=== PATIENT | female | born 2000 | race Caucasian/White ===

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

== ENCOUNTER → 2024-04-20 | Outpatient (CLI) | payer MEDICAID, SELFPAY ==
[2024-04-20 12:19] LABS: Absolute Lymphocyte Count 2.65 X10^3/uL (0.83-4.51); Absolute Neutrophil Count 4.4 X10^3/uL (2.0-7.7); Basophil# 0.07 X10^3/uL; Basophil% 0.9 % (0-1); Eosinophil# 0.03 X10^3/uL; Eosinophils% 0.4 % (0-5); Hematocrit 34.5 % (37-47); Hemoglobin 10.1 g/dL (12.0-15.0); Lymphocyte # 2.65 X10^3/ul (0.83-4.51); Lymphocyte % 35.1 % (19-41); Mean Corp Hgb Conc 29.3 g/dL (32-36); Mean Corpuscular Hgb 20.9 pg (27.0-32.0); Mean Corpuscular Volume 71.3 fL (81-99); Mean Platelet Vol. 11.7 fl (6.2-12.0); Monocyte# 0.38 X10^3/uL; NRBC Flagged by Analyzer 0 % (0-5); Neutrophil # 4.37 X10^3/uL (2.7-7.7); Neutrophil % 58.1 % (47-70); POSITIVE MORPHOLOGY YES; Platelet Count 352 K/mm3 (150-450); RBC Distribution Width SD 52.1 fl (35.1-43.9); Red Blood Count 4.84 M/mm3 (4.2-5.4); White Blood Count 7.5 K/mm3 (4.4-11.0)
[2024-04-20 12:21] LABS: Differential Indicated SCAN CRITERIA MET
[2024-04-20 12:34] LABS: Amphetamine Urine VISTA NEGATIVE (<1000 ng/mL); Barbiturate Urine VISTA NEGATIVE (< 200 ng/mL); Benzodiazepine Urine VISTA NEGATIVE (< 200 ng/mL); Cocaine Urine VISTA NEGATIVE (< 300 ng/mL); Ecstacy Urine VISTA NEGATIVE (< 500 ng/mL); Methadone Urine VISTA NEGATIVE (< 300 ng/mL); PCP Urine VISTA NEGATIVE (< 25 ng/mL); THC Urine VISTA POSITIVE (< 50 ng/mL); Vista UDS pH Range 7
[2024-04-20 12:55] LABS: Anisocytosis 2+; Microcytosis 1+; Platelet Estimate ADEQUATE (ADEQ); Platelet Morphology LARGE; Polychromasia 1+
[2024-04-20 12:56] LABS: Acanthocytes RARE; Ovalocyte 1+; Tear Drop Cell RARE
[2024-04-20 13:44] LABS: HIV - WCH Non-Reactive (Nonreactive); Hepatitis B Surface Antigen Non-Reactive (Nonreactive); Hepatitis C Antibody Non-Reactive (Nonreactive); Rubella IgG Reactive (Nonreactive); Syphilis Antibodies Non-reactive
[2024-04-20 14:52] LABS: Amphetamine Urine VISTA NEGATIVE (<1000 ng/mL); Barbiturate Urine VISTA NEGATIVE (< 200 ng/mL); Benzodiazepine Urine VISTA NEGATIVE (< 200 ng/mL); Cocaine Urine VISTA NEGATIVE (< 300 ng/mL); Ecstacy Urine VISTA NEGATIVE (< 500 ng/mL); Methadone Urine VISTA NEGATIVE (< 300 ng/mL); PCP Urine VISTA NEGATIVE (< 25 ng/mL); THC Urine VISTA POSITIVE (< 50 ng/mL); Vista UDS pH Range 6
[2024-04-23 21:07] LABS: Chlamydia By Nucleic Acid AMP Negative (Negative); Gonococcus By Nucleic Acid AMP Negative (Negative)
[2024-04-26 16:15] LABS: HPV Reflexed? NOT INDICATED
== END | disposition home or self-care (01) ==
PROVIDERS: Referring Provider Obstetrics & Gynecology; Visit Provider Obstetrics & Gynecology
DX: O09.90 Supervision of high risk pregnancy, unspecified, unspecified trimester (principal); F12.21 Cannabis dependence, in remission; F15.11 Other stimulant abuse, in remission; O99.891 Other specified diseases and conditions complicating pregnancy; N94.89 Other specified conditions associated with female genital organs and menstrual cycle; O99.210 Obesity complicating pregnancy, unspecified trimester; Z12.4 Encounter for screening for malignant neoplasm of cervix; Z78.9 Other specified health status; Z3A.00 Weeks of gestation of pregnancy not specified
CPT/HCPCS: 36415; 80307; 83036; 85025; 86703; 86762; 86780; 86787; 86803; 86850; 86900; 86901; 87086; 87088; 87340; 87491; 87591; 88175; G0145

== ENCOUNTER → 2024-08-14 | Outpatient (CLI) | payer MEDICAID, SELFPAY ==
[2024-08-14 12:17] LABS: Absolute Lymphocyte Count 2.08 X10^3/uL (0.83-4.51); Absolute Neutrophil Count 6.6 X10^3/uL (2.0-7.7); Basophil# 0.07 X10^3/uL; Basophil% 0.7 % (0-1); Eosinophil# 0.05 X10^3/uL; Eosinophils% 0.5 % (0-5); Hematocrit 33.8 % (37-47); Hemoglobin 10.2 g/dL (12.0-15.0); Lymphocyte # 2.08 X10^3/ul (0.83-4.51); Lymphocyte % 22.1 % (19-41); Mean Corp Hgb Conc 30.2 g/dL (32-36); Mean Corpuscular Hgb 24.9 pg (27.0-32.0); Mean Corpuscular Volume 82.4 fL (81-99); Mean Platelet Vol. 11.9 fl (6.2-12.0); Monocyte# 0.48 X10^3/uL; Monocyte% 5.1 % (0-10); NRBC Flagged by Analyzer 0 % (0-5); Neutrophil # 6.64 X10^3/uL (2.7-7.7); Neutrophil % 70.7 % (47-70); Platelet Count 319 K/mm3 (150-450); RBC Distribution Width CV 18.4 % (11.6-14.6); RBC Distribution Width SD 55.4 fl (35.1-43.9); White Blood Count 9.4 K/mm3 (4.4-11.0)
[2024-08-14 12:48] LABS: Glucose Challenge Gest 1H 50g 100 mg/dL (70-140)
[2024-08-14 13:03] LABS: HIV - WCH Non-Reactive (Nonreactive); Syphilis Antibodies Non-reactive
== END | disposition home or self-care (01) ==
LOC: BWCLAB 09:37
PROVIDERS: Advanced Practice Midwife; Referring Provider Obstetrics & Gynecology; Visit Provider Obstetrics & Gynecology
DX: O09.92 Supervision of high risk pregnancy, unspecified, second trimester (principal); Z13.1 Encounter for screening for diabetes mellitus; Z3A.00 Weeks of gestation of pregnancy not specified
CPT/HCPCS: 36415; 82950; 85025; 86703; 86780

== ENCOUNTER → 2024-08-28 | Outpatient (CLI) | payer MEDICAID, SELFPAY ==
[2024-08-28 15:38] LABS: Amphetamine Urine NEGATIVE (<1000 ng/mL); Barbiturate Urine VISTA NEGATIVE (< 200 ng/mL); Benzodiazepine Urine VISTA NEGATIVE (< 200 ng/mL); Cocaine Urine VISTA NEGATIVE (< 300 ng/mL); Ecstacy Urine VISTA NEGATIVE (< 500 ng/mL); Methadone Urine VISTA NEGATIVE (< 300 ng/mL); Opiates Urine NEGATIVE (< 300 ng/mL); PCP Urine NEGATIVE (< 25 ng/mL); THC Urine VISTA NEGATIVE (< 50 ng/mL); Vista UDS pH Range 7
== END | disposition home or self-care (01) ==
LOC: LABSPEC 14:50
PROVIDERS: Referring Provider Obstetrics & Gynecology; Visit Provider Obstetrics & Gynecology
DX: F12.21 Cannabis dependence, in remission (principal)
CPT/HCPCS: 80307

== ENCOUNTER 2024-10-03 18:10 | Outpatient (CLI) | payer MEDICAID, SELFPAY ==
[2024-10-03 18:21] VITALS: BMI 36.3
[2024-10-03 18:33] VITALS: BP 121/64; PULSE 88; RESP 16; TEMP 36.3
[2024-10-03 18:57] LABS: Color, Urine Yellow (Yellow); Glucose, Dipstick Normal (Normal); Ketone-Dipstick 5 mg/dl (Negative); Leukocyte Esterase-Dipstick Negative /ul (Negative); Nitrite-Dipstick Negative (Negative); Occult Blood-Urine Negative /ul (Negative); Protein-Dipstick Negative (Negative); Specific Gravity, Urine 1.005 (1.002-1.030); Urine Bilirubin Dipstick Negative (Negative); Urine Clarity Clear (Clear); Urine Urobilinogen Normal (Normal)
[2024-10-03 19:13] LABS: ROM Internal Control Test YES-OK TO RESULT pt. (Internal QC); ROM Patient Test Negative (Negative); Record Kit Lot#, ROM+ K3294
[2024-10-03 19:27] LABS: Fetal Fibronectin Negative; Record Kit Lot#, fFN D4035
[2024-10-03 19:34] VITALS: BP 127/66; PULSE 85
[2024-10-03 19:35] VITALS: RESP 14; TEMP 36.4
--- NOTE | 2024-10-03 22:52 | OB.TRI.PN ---
Progress Notes Date of Service: 10/03/24 Progress Note: Patient presents for triage evaluation secondary to contractions FHT: 140 Moderate variability reactive no decelerations category I tracing [place]: no regular Contractions Assessment and plan: ocntraction 33 weeks 1 cm dilate dffn negative rom plus negative ua negative Reactive NST, reassuring maternal and status patient discharged to home to follow-up as scheduled. See problem list details for additional plan information. Laboratory Studies: Laboratory Tests 10/03/24 10/03/24 Range/Units 18:45 18:20 Urine Color Yellow (Yellow) Urine Clarity Clear (Clear) Urine pH 7.0 (5.0 - 8.0) Ur Specific [place] 1.005 (1.002-1.030) Urine Protein Negative (Negative) mg/dl Urine Glucose (UA) Normal (Normal) mg/dl Urine Ketones 5 H (Negative) mg/dl Urine Occult Blood Negative (Negative) /ul Urine Nitrite Negative (Negative) Urine Bilirubin Negative (Negative) mg/dL Urine Urobilinogen Normal (Normal) mg/dl Ur Leukocyte Esterase Negative (Negative) /ul Vag Amniotic Fld Detect Negative (Negative) Fibronectin Negative Charges/Coding Procedures Urinary/Genital 52xxx-59xxx: 71815-72 non-stress test Interp
== END 2024-10-03 20:10 | disposition home or self-care (01) ==
LOC: WPOUT 18:17 → WP 19:43
PROVIDERS: Referring Provider Obstetrics & Gynecology; Visit Provider Obstetrics & Gynecology
DX: O47.03 False labor before 37 completed weeks of gestation, third trimester (principal); Z3A.33 33 weeks gestation of pregnancy
CPT/HCPCS: 59025; 59050; 81002; 82731; 84112; 99221; G0378

== ENCOUNTER 2024-10-22 11:15 | Outpatient (CLI) | payer MEDICAID, SELFPAY ==
[2024-10-22 11:30] VITALS: BMI 37.0
[2024-10-22 11:36] VITALS: BP 115/64; PULSE 109; RESP 16; TEMP 36.6; O2SAT 97
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
--- NOTE | 2024-10-22 14:47 | NURSING ---
pt being discharge and has an appointment at IOP at 1500. Going directly there.
--- NOTE | 2024-11-09 15:31 | CASEMGMT ---
[place]-SUICIDE SEVERITY RATING SCALE (C-SSRS) SUICIDAL IDEATION Ask questions 1 and 2.? If both are negative, proceed to ?Suicidal Behavior? section. If the answer to question 2 is ?yes?, ask questions 3, 4 and 5.? If the answer to question 1 and/or 2 is ?yes?, complete ?Intensity of Ideation? section below. Lifetime: Time He/She/They [place] Most Suicidal Past 1 month 1.? Wish to be Person endorses thoughts about a wish to be or not alive anymore or wish to fall asleep and not wake up. Have you wished you were or wished you could go to sleep and not wake up? If yes, describe: Patient reports that if she were things would be quiet, she would not have to think about anything and would not have any more stress. Yes?No X ? Yes?X??? No 2.? Non-Specific Active Suicidal Thoughts General non-specific thoughts of wanting to end one?s life/ by suicide (e.g., ?I?ve thought about killing myself?) without thoughts of ways to kill oneself/associated methods, intent, or plan during the assessment period. Have you actually had any thoughts of killing yourself? If yes, describe:Patient identifies that she has had thoughts of killing herself, sometimes these thoughts are without a specific way, but thoughts of what things would look like if she were to be unalive. ??? Yes ?No ??? X? ?? Yes???No X 3.? Active Suicidal Ideation with Any Methods (Not Plan) without Intent to Act Person endorses thoughts of suicide and has thought of at least one method during the assessment period. This is different than a specific plan with time, place or method details worked out (e.g., thought of method to kill self but not a specific plan).? Includes person who would say, ?I thought about taking an overdose but I never made a specific plan as to when, where or how I would actually do it?and I would never go through with it.? Have you been thinking about how you might do this? If yes, describe: Patient states that she has thought of methods on how she would kill herself, patient endorses thoughts of cutting her veins, my blood veins up my wrist, while I am in the bathroom ?? ?Yes? No X Yes? No X 4.? Active Suicidal Ideation with Some Intent to Act, without Specific Plan Active suicidal thoughts of killing oneself and person reports having some intent to act on such thoughts, as opposed to ?I have the thoughts but I definitely will not do anything about them.? Have you had these thoughts and had some intention of acting on them? If yes, describe: ?? Yes? No ??X Yes? No ?? X 5.? Active Suicidal Ideation with Specific Plan and Intent Thoughts of killing oneself with details of plan fully or partially worked out and person has some intent to carry it out. Have you started to work out or worked out the details of how to kill yourself? Did you intend to carry out this plan? If yes, describe: Patient reports that she has mapped out plans in her head on a way and means to kill herself in the past, to the point where she has several attempts to kill herself. Patient states that currently due to her she does not let her thoughts get this far. She reports that she will busy herself so that she gets distracted from suicidal thoughts. ???Yes?No X? Yes? No X INTENSITY OF IDEATION The following features should be rated with respect to the most severe type of ideation (i.e., 1-5 from above, with 1 being the least severe and 5 being the most severe). Ask about time he/she/they were feeling the most suicidal. ? Lifetime - Most Severe Ideation:? ___5____?Patient states that there were 3-4 times in her lifetime where she has attempted suicide. Patient reports as a young adult she struggled with thoughts of suicide frequently due to unmanaged mental health and a poor childhood. Patient states that she has 3-4 aborted attempts where she tried to hang herself. ? Recent - Most Severe Ideation:? ____4___?____Patient has had ideation with specific plan throughout lifetime and currently. Patient reports that she has thoughts of what life would look like if she were to kill herself, with the plan being she would cut her wrists in the bathroom, while someone else is proving care for her children. Patient reports that if she were not , she knows that she would have attempted ?Type # (1-5)?Description of? Ideation Most Severe 5 Most Severe 4 Frequency How many times have you had these thoughts? (1) Less than once a week??? (2) Once a week?? (3)? 2-5 times in week??? (4) Daily or almost daily??? (5) Many times each day 5 ____ 5 ____ Duration When you have the thoughts how long do they last? (1) Fleeting - few seconds or minutes? (4) 4-8 hours/most of day (2) Less than 1 hour/some of the time? (5) More than 8 hours/persistent or continuous (3) 1-4 hours/a lot of time __3__ __3__ Controllability Could/can you stop thinking about killing yourself or wanting to if you want to? (1) Easily able to control thoughts? (4) Can control thoughts with a lot of difficulty (2) Can control thoughts with little difficulty? (5) Unable to control thoughts (3) Can control thoughts with some difficulty? (0) Does not attempt to control thoughts ___5_ _3___ Deterrents Are there things - anyone or anything (e.g., family, catholic, pain of ) - that stopped you from wanting to or acting on thoughts of suicide? (1) Deterrents definitely stopped you from attempting suicide? (4) Deterrents most likely did not stop you (2) Deterrents probably stopped you? (5) Deterrents definitely did not stop you (3) Uncertain that deterrents stopped you?(0) Does not apply 4____ _1___ Reasons for Ideation What sort of reasons did you have for thinking about wanting to or killing yourself?? Was it to end the pain or stop the way you were feeling (in other words you couldn?t go on living with this pain or how you were feeling) or was it to get attention, revenge or a reaction from others? Or both? (1) Completely to get attention, revenge or a reaction from others? (4) Mostly to end or stop the pain (you couldn?t go on (2) Mostly to get attention, revenge or a reaction from others? living with the pain or how you were feeling) (3) Equally to get attention, revenge or a reaction from others? (5) Completely to end or stop the pain (you couldn?t go on ? and to end/stop the pain? living with the pain or? how you were feeling) ? (0) ?Does not apply ____5 ___4_ (pt reports has been extremely painful) SUICIDAL BEHAVIOR (Check all that apply, so long as these are separate events; must ask about all types) Lifetime Past 3 months Actual Attempt: A potentially self-injurious act undertaken with at least some wish to , as a result of act. Behavior was in part thought of as method to kill oneself. Intent does not have to be 100%.? If there is any intent/desire to associated with the act, then it can be considered an actual suicide attempt. There does not have to be any injury or harm, just the potential for injury or harm. If person pulls trigger while gun is in mouth but gun is broken so no injury results, this is considered an attempt.? Inferring Intent: Even if an individual denies intent/wish to , it may be inferred clinically from the behavior or circumstances. For example, a highly lethal act that is clearly not an accident so no other intent but suicide can be inferred (e.g., gunshot to head, jumping from window of a high floor/story). Also, if someone denies intent to , but they thought that what they did could be lethal, intent may be inferred. Have you made a suicide attempt? Yes Have you done anything to harm yourself? Yes Have you done anything dangerous where you could have ? Yes What did you do? Attempted to hang self Did you as a way to end your life? Yes Did you want to (even a little) when you ? Yes Were you trying to end your life when you ? Yes Or Did you think it was possible you could have from ? Or did you do it purely for other reasons / without ANY intention of killing yourself (like to relieve stress, feel better, get sympathy, or get something else to happen)? ?(Self-Injurious Behavior without suicidal intent) If yes, describe: Has person engaged in Non-Suicidal Self-Injurious Behavior? Yes In lifetime, patient did engage in suicidal behavior. Yes, patient has cut self, specifically on her thighs. Yes? No X?? Total # of Attempts 3-4 Yes? No X? Yes? No X Total # of Attempts ___0___ Yes? No X Interrupted Attempt:? When person is interrupted (by an outside circumstance) from starting the potentially self-injurious act (if not for that, actual attempt would have occurred). Overdose: Person has pills in hand but is stopped from ingesting.? Once they ingest any pills, this becomes an attempt rather than an interrupted attempt. Shooting: Person has gun pointed toward self, gun is taken away by someone else, or is somehow prevented from pulling trigger. Once they pull the trigger, even if the gun fails to fire, it is an attempt. Jumping: Person is poised to jump, is grabbed and taken down from ledge. Hanging: Person has noose around neck but has not yet started to hang - is stopped from doing so. Has there been a time when you started to do something to end your life but someone or something stopped you before you actually did anything? If yes, describe: Yes? No X? Total # of interrupted 3- Yes? No X Total # of interrupted 0 Aborted or Self-Interrupted Attempt:? When person begins to take steps toward making a suicide attempt but stops themselves before they actually have engaged in any self-destructive behavior. Examples are similar to interrupted attempts, except that the individual stops him/herself, instead of being stopped by something else. Has there been a time when you started to do something to try to end your life but you stopped yourself before you actually did anything? If yes, describe: Yes? No ? Total # of aborted or self-interrupted Yes? No ? Total # of aborted or self-interrupted Preparatory Acts or Behavior: Acts or preparation towards imminently making a suicide attempt. This can include anything beyond a verbalization or thought, such as assembling a specific method (e.g., buying pills, purchasing a gun) or preparing for one?s by suicide (e.g., giving things away, writing a suicide note). Have you taken any steps towards making a suicide attempt or preparing to kill yourself (such as collecting pills, getting a gun, giving valuables away or writing a suicide note)? If yes, describe: Yes? No ? Total # of preparatory acts Yes? No ? Total # of preparatory acts Most Recent Attempt Date: Most Lethal? Attempt Date: Initial/First Attempt Date: Actual Lethality/Medical Damage:? 0.? No physical damage or very minor physical damage (e.g., surface scratches). 1.? Minor physical damage (e.g., lethargic speech; first-degree negron; mild bleeding; sprains). 2.? Moderate physical damage; medical attention needed (e.g., conscious but sleepy, somewhat responsive; second-degree negron; bleeding of major vessel). 3.? Moderately severe physical damage; medical hospitalization and likely intensive care required (e.g., comatose with reflexes intact; third-degree negron less than 20% of body; extensive blood loss but can recover; major fractures). 4.? Severe physical damage; medical hospitalization with intensive care required (e.g., comatose without reflexes; third-degree negron over 20% of body; extensive blood loss with unstable vital signs; major damage to a vital area). 5.? Enter Code Enter Code Enter Code Potential Lethality: Only Answer if Actual Lethality=0 Likely lethality of actual attempt if no medical damage (the following examples, while having no actual medical damage, had potential for very serious lethality: put gun in mouth and pulled the trigger but gun fails to fire so no medical damage; laying on train tracks with oncoming train but pulled away before run over). 0 = Behavior not likely to result in injury 1 = Behavior likely to result in injury but not likely to cause 2 = Behavior likely to result in despite available medical care Enter Code Enter Code Enter Code
--- NOTE | 2024-11-09 15:52 | CASEMGMT ---
Continuing from note that got entered prematurely. Aborted or Self-Interrupted Attempt:? When person begins to take steps toward making a suicide attempt but stops themselves before they actually have engaged in any self-destructive behavior. Examples are similar to interrupted attempts, except that the individual stops him/herself, instead of being stopped by something else. Has there been a time when you started to do something to try to end your life but you stopped yourself before you actually did anything? If yes, describe:Patient states that as a young adult there are 3-4 instances where she had been having consistent, daily, non stop suicidal ideations, to the point of formulating a plan. Patient formulated plan, obtained supplies to hang herself and started to hang herself, and then self aborted. Yes? No X Total # of aborted or self-interrupted 3-4 Yes? No X Total # of aborted or self-interrupted ) Preparatory Acts or Behavior: Acts or preparation towards imminently making a suicide attempt. This can include anything beyond a verbalization or thought, such as assembling a specific method (e.g., buying pills, purchasing a gun) or preparing for one?s by suicide (e.g., giving things away, writing a suicide note). Have you taken any steps towards making a suicide attempt or preparing to kill yourself (such as collecting pills, getting a gun, giving valuables away or writing a suicide note)? If yes, describe: Patient made and formulated plan, obtained supplies Yes? No X?? Total # of preparatory acts 3-4 Yes? No X Total # of preparatory acts Most Recent Attempt Date: Most Lethal? Attempt Date: Initial/First Attempt Date: Actual Lethality/Medical Damage:? 0.? No physical damage or very minor physical damage (e.g., surface scratches). 1.? Minor physical damage (e.g., lethargic speech; first-degree negron; mild bleeding; sprains). 2.? Moderate physical damage; medical attention needed (e.g., conscious but sleepy, somewhat responsive; second-degree negron; bleeding of major vessel). 3.? Moderately severe physical damage; medical hospitalization and likely intensive care required (e.g., comatose with reflexes intact; third-degree negron less than 20% of body; extensive blood loss but can recover; major fractures). 4.? Severe physical damage; medical hospitalization with intensive care required (e.g., comatose without reflexes; third-degree negron over 20% of body; extensive blood loss with unstable vital signs; major damage to a vital area). 5.? Enter Code 1 (self harm/ cutting) Patient does not know date Enter Code Patient does not know date Enter Code Patient does not know date. Potential Lethality: Only Answer if Actual Lethality=0 Likely lethality of actual attempt if no medical damage (the following examples, while having no actual medical damage, had potential for very serious lethality: put gun in mouth and pulled the trigger but gun fails to fire so no medical damage; laying on train tracks with oncoming train but pulled away before run over). 0 = Behavior not likely to result in injury 1 = Behavior likely to result in injury but not likely to cause 2 = Behavior likely to result in despite available medical care Enter Code ___0___ Enter Code __1____ Enter Code ____1__ Patient presented to labor and delivery unit on 10/22/24 due to being in pain during . Patient is not in labor, was assessed and determined she did not meet medical criteria for discharge. While meeting with the nurse patient became tearful and endorsed that she does not want to be any more, to the point where she has had thoughts of hurting herself. Sw met with patient and her significant other at bedside. Sw asked s/o to step out of room so that MOB could complete [place] assessment. MOB was tearful throughout conversation and completion of assessment. MOB open and willing to address her mental health status at this time. MOB reports that her has not gone well, she is in extreme physical pain and overwhelmed with her private/ family life at home. MOB states that she has limited support, and FOB does not understand how to help her. Patient states that she has tried to have conversations with FOB about things and ways he can help her, however he just sits there and tells her that he is numb. MOB informed sw of her SI/ SA history, and reports that if she were not she does believe that she would have attempted to kill herself again. Patient does report that she feels as though her children and her unborn child are her reason for wanting to stay alive. MOB states that she is open and receptive to getting connected to mental health supports. MOB agreed to linkage to [facility]. MOB has intake on this date, and ongoing services to be implemented. Sw to follow up with patient at time of delivery when she is admitted again to Labor and Delivery. Charlie Glasgow, MANAGER ELIGIBILITY, APPEALS REVIEWER VETERAN
== END 2024-10-22 14:47 | disposition home or self-care (01) ==
LOC: WPOUT 11:17 → WP 11:18
PROVIDERS: Referring Provider Advanced Practice Midwife; Visit Provider Advanced Practice Midwife
DX: O47.03 False labor before 37 completed weeks of gestation, third trimester (principal); F15.11 Other stimulant abuse, in remission; O99.013 Anemia complicating pregnancy, third trimester; O99.213 Obesity complicating pregnancy, third trimester; O09.93 Supervision of high risk pregnancy, unspecified, third trimester; O99.323 Drug use complicating pregnancy, third trimester; O99.343 Other mental disorders complicating pregnancy, third trimester; F41.9 Anxiety disorder, unspecified; F32.A Depression, unspecified; F12.11 Cannabis abuse, in remission; Z3A.36 36 weeks gestation of pregnancy; Z86.19 Personal history of other infectious and parasitic diseases; Z62.810 Personal history of physical and sexual abuse in childhood
CPT/HCPCS: 59025; 59050; 87081; 99221; G0378

== ENCOUNTER → 2024-10-22 | Outpatient (CLI) | payer MEDICAID, SELFPAY | END | disposition home or self-care (01) | PROVIDERS: Visit Provider Advanced Practice Midwife | DX: O09.92 Supervision of high risk pregnancy, unspecified, second trimester (principal); Z3A.00 Weeks of gestation of pregnancy not specified | CPT/HCPCS: 87081 ==

== ENCOUNTER 2024-11-02 18:58 | Inpatient (IN) | payer MEDICAID, SELFPAY ==
[2024-11-02] VITALS (14 sets, daily range): BP systolic 107–136; BP diastolic 59–81; PULSE 74–108; RESP 16–20; TEMP 36.6–36.8; O2SAT 84–100; BMI 37.2
[2024-11-02 18:18] LABS: ROM Internal Control Test YES-OK TO RESULT pt. (Internal QC); ROM Patient Test Negative (Negative); Record Kit Lot#, ROM+ K3294
[2024-11-02 19:26] LABS: Absolute Lymphocyte Count 2.98 X10^3/uL (0.83-4.51); Basophil# 0.08 X10^3/uL; Basophil% 0.7 % (0-1); Eosinophil# 0.03 X10^3/uL; Eosinophils% 0.3 % (0-5); Hematocrit 28.4 % (37-47); Hemoglobin 9.2 g/dL (12.0-15.0); Lymphocyte # 2.98 X10^3/ul (0.83-4.51); Lymphocyte % 27.7 % (19-41); Mean Corp Hgb Conc 32.4 g/dL (32-36); Mean Corpuscular Hgb 24.8 pg (27.0-32.0); Mean Corpuscular Volume 76.5 fL (81-99); Mean Platelet Vol. 11.1 fl (6.2-12.0); Monocyte# 0.54 X10^3/uL; NRBC Flagged by Analyzer 0 % (0-5); Neutrophil # 7.04 X10^3/uL (2.7-7.7); Neutrophil % 65.6 % (47-70); Platelet Count 260 K/mm3 (150-450); RBC Distribution Width CV 14.2 % (11.6-14.6); RBC Distribution Width SD 39.5 fl (35.1-43.9); Red Blood Count 3.71 M/mm3 (4.2-5.4); White Blood Count 10.8 K/mm3 (4.4-11.0)
[2024-11-02 20:13] LABS: Syphilis Antibodies Nonreactive (Nonreactive)
[2024-11-02 21:28] LABS: Amphetamine Urine NEGATIVE (<1000 ng/mL); Barbiturate Urine NEGATIVE (< 200 ng/mL); Benzodiazepine Urine NEGATIVE (< 200 ng/mL); Buprenorphine Urine NEGATIVE (< 200 ng/mL); Cocaine Urine NEGATIVE (< 300 ng/mL); Fentanyl, Urine NEGATIVE; Methadone Urine NEGATIVE (< 300 ng/mL); Opiates Urine NEGATIVE (< 300 ng/mL); Oxycodone, Urine NEGATIVE (< 100 ng/mL); PCP Urine NEGATIVE (< 25 ng/mL); THC Urine NEGATIVE (< 50 ng/mL)
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
[2024-11-02] MEDS: Lactated Ringers 1,000 ML 999 ML IV (22:46)
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
[2024-11-02] MEDS: fentaNYL-bupivacaine (epidural) 100 ML BAG EPIDURAL (23:48)
[2024-11-02] MEDS: Lactated Ringers 1,000 ML 200 ML IV (23:52)
[2024-11-03] VITALS (46 sets, daily range): BP systolic 96–131; BP diastolic 48–85; PULSE 53–118; RESP 14–20; TEMP 36.1–36.8; O2SAT 86–100
[2024-11-03] MEDS: Oxytocin 15 Units/NS 250ml 15 UNITS/250 ML IV.SOLN 2 UNITS IV (02:04)
[2024-11-03] MEDS: Oxytocin 15 Units/NS 250ml 15 UNITS/250 ML IV.SOLN 334 UNITS IV (03:05)
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
--- NOTE | 2024-11-03 03:15 | DCINST_ITS ---
Discharge Instructions Diet Discharge Diet: No restrictions DC O2, CPAP, BIPAP needs Home O2 Discharge instructions: No Dressing / Incision Discharge Activity: Return to Normal Activity May resume sexual activity in: 6-8 weeks Dressing / Incision Call your doctor if you observe: Fever of 101 or Higher, Coldness, Increased Pain, Numbness or Tingling, Change in Color, Inability to urinate, Inability to have a bowel movement, Using more than 1 pad per hour, Shortness of breath, Dizziness, Fainting spells, Swelling in the ankles, Chest pain, Increased p alpitations (irregular heartbeat), Calf discomfort and Uncontrolled pain Follow Up Care Please Follow Up With: Luisa Barcenas CNM When: Please call the office to schedule your follow up appointment in 6 weeks. If you had high blood pressure please call to schedule an appointment in 2 weeks. Test Results: Test results from this visit will be discussed in further detail at your follow- up appointment, if applicable. Discharge Plan Admission Admit Date/Time: 11/02/24 18:58 Attending Provider: Luisa Barcenas Primary Care Provider: Ivania Sherwood Discharge Orders/Prescriptions Prescriptions: No Action PNV-DHA 27 mg iron-1 mg -300 mg capsule 1 cap PO DAILY valacyclovir [Valtrex] 500 mg tablet 500 mg PO DAILY Qty: 30 1RF hydroxyzine pamoate 50 mg capsule 50 mg PO QHS Qty: 30 0RF Referrals / Follow Up: Ivania Sherwood DO [Primary Care Provider] -
[2024-11-03] MEDS: Oxytocin 15 Units/NS 250ml 15 UNITS/250 ML IV.SOLN 83 UNITS IV (03:50)
[2024-11-03] MEDS: Acetaminophen 500 MG Tablet 1000 MG PO ×2 (04:30→15:06)
[2024-11-03] MEDS: Ibuprofen 600 MG Tablet PO ×2 (07:58→20:20)
[2024-11-03 12:41] LABS: Absolute Lymphocyte Count 3.14 X10^3/uL (0.83-4.51); Absolute Neutrophil Count 6.6 X10^3/uL (2.0-7.7); Basophil# 0.05 X10^3/uL; Basophil% 0.5 % (0-1); Eosinophil# 0.03 X10^3/uL; Eosinophils% 0.3 % (0-5); Hematocrit 25.7 % (37-47); Hemoglobin 8.6 g/dL (12.0-15.0); Lymphocyte # 3.14 X10^3/ul (0.83-4.51); Lymphocyte % 29.7 % (19-41); Mean Corp Hgb Conc 33.5 g/dL (32-36); Mean Corpuscular Hgb 25.6 pg (27.0-32.0); Mean Corpuscular Volume 76.5 fL (81-99); Monocyte# 0.68 X10^3/uL; Monocyte% 6.4 % (0-10); NRBC Flagged by Analyzer 0 % (0-5); Neutrophil # 6.62 X10^3/uL (2.7-7.7); Neutrophil % 62.4 % (47-70); Platelet Count 246 K/mm3 (150-450); RBC Distribution Width CV 14.3 % (11.6-14.6); RBC Distribution Width SD 39.5 fl (35.1-43.9); Red Blood Count 3.36 M/mm3 (4.2-5.4); White Blood Count 10.6 K/mm3 (4.4-11.0)
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
[2024-11-03] MEDS: Iron Sucrose Complex 100 MG in 0.9% Normal Saline (100mL Bag) 100 ML 420 MG IV (14:56)
--- NOTE | 2024-11-03 18:35 | CASEMGMT ---
Drilling Supervisor: hog worker called [facility] Child Protective Services and spoke with Amina. hog worker made a referral pertaining to the positive screen for marijuana by the mother of baby on04/20/24, while , per mandate. Jazlyn Mireles, EMERGENCY CARE ATTENDANT, POWERHOUSE MECHANIC APPRENTICE
--- NOTE | 2024-11-03 20:10 | CASEMGMT ---
Social Work: Date of completion: 11/03/2024 [place] SSRS (C-SSRS) SUICIDAL IDEATION Ask questions 1 and 2.? If both are negative, proceed to ?Suicidal Behavior? section. If the answer question 2 is yes, ask questions 3, 4, 5.? If the answer to question 1 and/or 2 is ?yes?, complete ?Intensity of Ideation? section below. 1. Wish to be ? Subject endorses thoughts about a wish to be or not alive anymore, or wish to fall asleep and not wake up. Have you wished you were or wished you could go to sleep and not wake up? Since Last Visit:? Yes or No: Yes Please Describe if yes: ?Last week, patient reported she had thoughts of thinking she would be better off ?not here?. This came during a time when patient stated she was ?done? being . 2. Non-Specific Active Suicidal Thoughts General, non-specific thoughts of wanting to end one?s life/commit suicide (e.g., ?I?ve thought about killing myself?) without thoughts of ways to kills oneself/associated methods, intent, or plan during the assessment period.? Have you actually had any thoughts of killing yourself? Since Last Visit:? Yes or No: No Please Describe if yes: N/A 3. Active Suicidal Ideation with Any Methods (Not Plan) without Intent to Act Subject endorses thoughts of suicide and has thought of at least one method during the assessment period.? This is different than a specific plan with time, place, or method details worked out (e.g., thought of method to kills self but not a specific plan).? Includes person who would say ?I thought about thanking an overdose, but I never made a specific plan as to when, where or how. I would actually do it, and I would never go through with it.? Have you been thinking about how you might do this? Since Last Visit:? Yes or No: No ?Please Describe if yes: N/A 4. Active Suicidal Ideation with Some Intent to Act, without Specific Plan Active suicidal thoughts of kills oneself fand subject reports having some intent to act on such thoughts, as opposed to ?I have the thoughts but I definitely will not do anything about them.? Have you had these thoughts and had some intention of acting on them? Since Last Visit:? Yes or No: No Please Describe if yes: N/A 5. Active Suicidal Ideation with Specific Plan and Intent Thoughts of kills oneself with details of plan fully or partially worked out and subject has some intent to care it out. Have you started to work out or worked out the details of how to kill yourself? Do you intend to carry out this plan? Since Last Visit:? Yes or No: No ?Please Describe if yes: N/A INTENSITY OF IDEATION The following feature should be rated with respect to the most sever type of ideation (i.e., 1-5 from above, with 1 being the least severe and 5 being the most severe). Ask about time he/she/they were feeling the most suicidal.? Most Severe Ideation Since Last Visit: Type # (1-5): 1 Description if Ideation: Patient was tired of being and had thoughts that everything would be better if she weren?t here.? SUICIDAL BEHAVIOR Actual Attempt: A potentially self-injurious act committed with at least some wish to , as a result of act.? Behavior was in part thought of as method to kill oneself.? Intent does not have to be 100%.? If there is any intent/desire to associated with the act, then it can be considered an actual suicide attempt.? There does not have to be any injury of harm, just the potential for injury or harm.? If person pulls trigger while gun is in mouth, but gun is broken so no injury results, this is considered an attempt.? Inferring intent:? Even if an individual denies intent/wish to , it may be inferred clinically from the behavior or circumstances.? For example, a highly lethal act that is clearly not an accident so no other intent but suicide can be inferred (e.g. gunshot to head, jumping from window of a high floor/story).? Also, if someone denies intent to , but they thought that what they did could be lethal, intent may be inferred.? Have you made a suicide attempt? Have you done anything to harm yourself? Have you done anything dangerous where you could have ? What did you do? Did you as a way to end your life? Did you want to (even a little) when you ? Were you trying to end your life when you ? Or did you think it was possible you could have from ? Or did you do it purely for other reasons/without ANY intention of killing yourself like to relieve stress, feel better, get sympathy, or get something else to happen)? (Self -Injurious Behavior without suicidal intent) Since Last Visit: No If yes, describe: N/A Total # of Attempts Since Last Visit: 0 Has person engaged in Non-Suicidal Sefl-Injurious Behavior? Since Last Visit: No Interrupted Attempt:? When the person is interrupted (by an outside circumstance) from starting the potentially self-injurious act (if not for that, actual attempt would have occurred).? Overdose: Person has pills in hand but is stopped from ingesting. Once they ingest any pills, this becomes an attempt rather than an interrupted attempt. Shooting: Person has gun pointed toward self, gun is taken away by someone else, or is somehow prevented from pulling trigger. Once they pull the trigger, even if the gun fails to fire, it is an attempt. Jumping: Person is poised to jump, is grabbed and taken down from ledge.? Hanging: Person has noose around neck but has not yet started to hang self -is stopped from doing so.? Has there been a time when you started to do something to end your life but someone or something stopped you before you did anything? Since last Visit: No If yes, describe: ?N/A Total # of interrupted attempts since last visit: 0 Aborted or Self-Interrupted Attempt:? When person begins to take steps toward making a suicide attempt, but stops themselves before they have actually engaged in any self-destructive behavior. Examples are like interrupted attempts, except that the individual stops him/herself, instead of being stopped by something else. Has there been a time when you started to do something to try to end your life, but you stopped yourself before you did anything? Since Last Visit: 0 If yes, describe: N/A Total # of aborted or self-interrupted attempts since last visit: ?0 Preparatory Acts or Behavior:? Acts or preparation towards imminently making a suicide attempt. This can include anything beyond a verbalization or thought, such as assembling a specific method (e.g., buying pills, purchasing a gun) or preparing for one?s by suicide (e.g., giving things away, writing a suicide note). Have you taken any steps towards making a suicide attempt or preparing to kill yourself (such as collecting pills, getting a gun, giving valuables away or writing a suicide note)? Since Last Visit: No If yes, describe: ?N/A Total # of preparatory acts since last visit: 0 Lethality/Medical Damage:??? 0.? No physical damage or very minor physical damage (e.g., surface scratches). 1.? Minor physical damage (e.g., lethargic speech; first-degree negron; mild bleeding; sprains). 2.? Moderate physical damage; medical attention needed (e.g., conscious but sleepy, somewhat responsive; second-degree negron; bleeding of major vessel). 3.? Moderately severe physical damage; medical hospitalization and likely intensive care required (e.g., comatose with reflexes intact; third-degree negron less than 20% of body; extensive blood loss but can recover; major fractures). 4.? Severe physical damage; medical hospitalization with intensive care required (e.g., comatose without reflexes; third-degree negron over 20% of body; extensive blood loss with unstable vital signs; major damage to a vital area). 5.? Most Recent attempt Date Since Last Visit: None Code: N/A Potential Lethality:? Only Answer if Actual Lethality=0 Likely lethality of actual attempt if no medical damage (the following examples, while having no actual medical damage, had potential for very serious lethality: put gun in mouth and pulled the trigger but gun fails to fire so no medical damage; laying on train tracks with oncoming train but pulled away before run over). 0 = Behavior not likely to result in injury 1 = Behavior likely to result in injury but not likely to cause 2 = Behavior likely to result in despite available medical care Most Recent Attempt Code since last visit: N/A After social work consultation with supervisor electronics assembly, it was decided that the C-SSRS (since last visit) would be completed due to patient?s score of 24 on the earlier administered [place] Depression Scale (EPDS). Although patient did say that she had a thought last week of wishing she ?wasn?t here?, patient denied any ideation with a method/plan/intent. Patient was able to identify her children and fianc? as deterrents and stated she will reach out for help if needed.? A safety plan was created with patient and hard copy is in patient?s records.? social worker assistant reviewed warning signs, coping skills, available supports, lethal means ?and crisis numbers, all of which patient verbalized she understood. Patient has decided that she is going to take this coming week off of IOP with [facility] due to having just given , however is planning on resuming the week of 11/12/24. social worker assistant asked patient if oncology social work could make a referral to [facility], however patient stated she would like to look into it more first and declined, stating she will reach out to oncology social work should she decide to have a referral made.? No additional concerns/needs at this time. Jazlyn Mireles, REIMBURSEMENT COUNSELOR, RESEARCH LEADER
--- NOTE | 2024-11-03 21:32 | NURSING ---
Report given to Fior SWIFT, taking over pt care at this time.
[2024-11-04] MEDS: Acetaminophen 500 MG Tablet 1000 MG PO (00:25)
[2024-11-04 03:41] VITALS: BP 112/75; PULSE 60; RESP 16; TEMP 36.1; O2SAT 99
[2024-11-04] MEDS: Ibuprofen 600 MG Tablet PO (03:45)
[2024-11-04 07:37] VITALS: BP 118/76; PULSE 71; RESP 16; TEMP 36.4; O2SAT 98
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
[2024-11-04] MEDS: MedroxyPROGESTERone 150 MG/ML Syringe IM (10:41)
--- NOTE | 2024-11-04 10:55 | NURSING ---
1049-pt has been seen by social work and cleared by social work. states she filled out the paperwork already for this.
--- NOTE | 2024-11-25 15:38 | CASEMGMT ---
[place] support worker received written correspondence from [facility] dated 11/05/24 which stated the referral was not accepted for assessment/investigation. Jazlyn Mireles, PRACTICE DIRECTOR, REORDERING CLERK
== END 2024-11-04 11:17 | disposition home or self-care (01) | DRG 560 ==
LOC: WPOUT 18:59 → WP 18:59
PROVIDERS: Admitting Provider Advanced Practice Midwife; Referring Provider Advanced Practice Midwife; Visit Provider Advanced Practice Midwife
DX: O99.02 Anemia complicating childbirth (principal); Z37.0 Single live birth; F12.11 Cannabis abuse, in remission; O99.214 Obesity complicating childbirth; F15.11 Other stimulant abuse, in remission; O99.324 Drug use complicating childbirth; O69.81X0 Labor and delivery complicated by cord around neck, without compression, not applicable or unspecified; O76 Abnormality in fetal heart rate and rhythm complicating labor and delivery; Z3A.38 38 weeks gestation of pregnancy; Z62.810 Personal history of physical and sexual abuse in childhood; Z86.19 Personal history of other infectious and parasitic diseases
CPT/HCPCS: 59025; 59050; 80307; 84112; 85025; 86780; 86850; 86900; 86901; 99221; H2012; H2020; J1756; S9480; 90837; G0378

== ENCOUNTER → 2024-12-07 | Outpatient (CLI) | payer MEDICAID, SELFPAY ==
--- NOTE | 2024-12-07 14:07 | US_ITS ---
PROCEDURE: BREAST LIMITED UNILATERAL 12/07/2024 REASON FOR EXAM: 24-year-old female presents with palpable concern in the right breast. TECHNIQUE: Targeted right breast ultrasound. COMPARISON: No priors. FINDINGS: Right breast ultrasound was targeted to the lower-inner quadrant. The ultrasound demonstrates a small intradermal fluid collection with a tract leading to the overlying skin in the right breast at 4 o'clock 10 cm from the nipple, measuring 1.3 x 0.2 x 1.1 cm. This may represent a sebaceous cyst/epidermal inclusion cyst. US/Breast Limited Unilateral IMPRESSION: Impression: Benign right breast sebaceous cyst. Clinical management is recomme nded. Birads: BI-RADS 2: BENIGN. RECOMMEND ANNUAL MAMMOGRAPHIC SCREENING. Reading Location: [id number]
== END | disposition home or self-care (01) ==
LOC: OPUS 14:03
PROVIDERS: Referring Provider Advanced Practice Midwife; Visit Provider Advanced Practice Midwife
DX: N63.0 Unspecified lump in unspecified breast (principal)
CPT/HCPCS: 76642

== ENCOUNTER → 2024-12-13 | Outpatient (CLI) | payer MEDICAID, SELFPAY | END | disposition home or self-care (01) | LOC: LABSPEC 16:56 | PROVIDERS: Referring Provider Advanced Practice Midwife; Visit Provider Advanced Practice Midwife | DX: R35.0 Frequency of micturition (principal) | CPT/HCPCS: 87077; 87086; 87088 ==

== ENCOUNTER → 2025-04-03 | Outpatient (CLI) | payer MEDICAID, SELFPAY | END | disposition home or self-care (01) | LOC: LABSPEC 11:59 | PROVIDERS: Referring Provider Nurse Practitioner Women's Health; Visit Provider Nurse Practitioner Women's Health | DX: N93.9 Abnormal uterine and vaginal bleeding, unspecified (principal) | CPT/HCPCS: 87070; 87077; 87186; 87205 ==

== ENCOUNTER → 2025-04-29 | Outpatient (CLI) | payer MEDICAID, SELFPAY ==
[2025-04-29 12:26] LABS: Hematocrit 36.6 % (37-47); Hemoglobin 11.4 g/dL (12.0-15.0); Immature Granulocytes Count 0.020 X10^3/uL (0.0-0.0); Mean Corp Hgb Conc 31.1 g/dL (32-36); Mean Corpuscular Volume 79.6 fL (81-99); Mean Platelet Vol. 11.2 fl (6.2-12.0); NRBC Flagged by Analyzer 0 % (0-5); Platelet Count 310 K/mm3 (150-450); RBC Distribution Width CV 15.3 % (11.6-14.6); RBC Distribution Width SD 44.1 fl (35.1-43.9); Red Blood Count 4.60 M/mm3 (4.2-5.4); White Blood Count 6.5 K/mm3 (4.4-11.0)
[2025-05-01 04:07] LABS: Chlamydia By Nucleic Acid AMP Negative (Negative); Gonococcus By Nucleic Acid AMP Negative (Negative)
== END | disposition home or self-care (01) ==
PROVIDERS: Visit Provider Nurse Practitioner Women's Health
DX: N93.9 Abnormal uterine and vaginal bleeding, unspecified (principal); Z13.29 Encounter for screening for other suspected endocrine disorder; Z11.3 Encounter for screening for infections with a predominantly sexual mode of transmission
CPT/HCPCS: 36415; 84439; 84443; 85025; 86376; 87491; 87591

== ENCOUNTER → 2025-05-07 | Outpatient (CLI) | payer MEDICAID, SELFPAY ==
--- NOTE | 2025-05-07 13:08 | US_ITS ---
PROCEDURE: PELVIC W/ TRANSVAGINAL REASON FOR EXAM: AUB TECHNIQUE: Procedure Code: [id number] Modality: US Procedure: PELVIC W/ TRANSVAGINAL COMPARISON: None FINDINGS: Measurements: Uterus: 8.5 cm x 5.7 cm x 4.1 cm with a volume of 103.9 mL Endometrial Thickness: 5 mm. It is hyperechoic. Right Ovary: 2.6 cm x 1.8 cm x 1.7 cm with a volume of 4.1 mL. Left Ovary: Status post left oophorectomy. TRANSABDOMINAL: Uterus: Normal size, myometrial echotexture, and contour. Endometrium: Unremarkable. Right ovary: Normal size and echotexture. Left ovary: Surgically absent. Other: No large pelvic mass identified. Transvaginal sonography was performed to better visualize the endometrium. TRANSVAGINAL: Uterus: Anteverted. Normal contour and myometrial echotexture. Endometrium: Normal echotexture. Right ovary: Normal size and echotexture. Left ovary: Surgically absent. Other adnexal findings: None. Cul-de-sac: No free intraperitoneal fluid identified. Tenderness: No tenderness US/Pelvic w/ Transvaginal IMPRESSION: Status post left oophorectomy. No significant abnormality is seen. Reading Location: [place] [id number]
== END | disposition home or self-care (01) ==
LOC: OPUS 13:07
PROVIDERS: Referring Provider Nurse Practitioner Women's Health; Visit Provider Nurse Practitioner Women's Health
DX: N93.9 Abnormal uterine and vaginal bleeding, unspecified (principal)
CPT/HCPCS: 76830; 76856